=== PATIENT | female | born 1980 | race Two or more races ===

== ENCOUNTER → 2025-09-04 | Outpatient (CLI) | payer MEDICAID, SELFPAY ==
--- NOTE | 2025-09-04 08:00 | XR_ITS ---
Examination: MRI abdomen with intravenous contrast. MRI abdomen without intravenous contrast. Date and time of exam: September 04, 2025, 0857 hours INDICATIONS: Right upper abdominal pain beginning 2 years ago Technique: Multiple axial, sagittal and coronal sections of the abdomen obtained. Transverse images, TR 6020, TE 107. T1 weighted transverse images, TR 582, TE 9.5. T2-weighted sagittal images, TR 4000, TE 105. T2-weighted sagittal images, TR 4000, TE 5. Coronal images, TR 4210, TE 107. Axial and coronal images are obtained post 20 cc intravenous injection, gadolinium. Findings: No focal liver lesions Multiple gallstones, negative for cholecystitis Normal common hepatic common bile duct No pancreatic edema Spleen is not enlarged No hydronephrosis No abdominal lymphadenopathy Negative for ascites Postcontrast images demonstrate no abnormal enhancing liver splenic or renal lesions IMPRESSION: Cholelithiasis, negative for cholecystitis
== END | disposition home or self-care (01) ==
LOC: SMRI 07:57
PROVIDERS: PCP Nurse Practitioner Family; Referring Provider Nurse Practitioner Family; Visit Provider Nurse Practitioner Family
DX: K80.20 Calculus of gallbladder without cholecystitis without obstruction (principal)
CPT/HCPCS: 74183; A9577